=== PATIENT | male | born 1940 | race Caucasian/White ===

== ENCOUNTER 2021-07-07 21:49 | Inpatient (IN) | payer OTHER ==
[~2021-07-07] VITALS: Ht 175.3 cm; Wt 65.4 kg
[~2021-07-07 21:49] MED LIST: LISI-892 PO; METF-960 PO
[2021-07-07] MEDS ORDERED: IOHEXOL 350 MG/ML 100 ML VIAL ONE (22:07)
[2021-07-07] MEDS ORDERED: SODIUM CHLORIDE 0.9% 100 ML ONE (22:07)
[2021-07-07] MEDS ORDERED: ALTEPLASE PER STROKE PROTOCOL CLINICAL ONE (22:15)
[2021-07-07 22:17] LABS: BASOPHILS % (AUTO) 0.5 % (0.0-2.0); HEMATOCRIT 43.2 % (41-53); HEMOGLOBIN 13.9 g/dL (13.5-17.5); LYMPHOCYTES # (AUTO) 4.5 K/uL (1.0-4.8); LYMPHOCYTES % (AUTO) 35.8 % (22.0-44.0); MEAN CORPUSCULAR HGB CONC 32.1 G/dL (31.0-37.0); MEAN CORPUSCULAR VOLUME 97 fL (80-100); MONOCYTES # (AUTO) 1.8 K/uL (0.1-1.0); MONOCYTES % (AUTO) 14.6 % (2.0-9.0); NEUTROPHILS # (AUTO) 5.6 K/uL (1.8-7.7); NEUTROPHILS % (AUTO) 45.1 % (40.0-70.0); PLATELET COUNT (AUTO) 314 K/uL (150-450); RED BLOOD CELL COUNT(AUTO) 4.47 MIL/uL (4.50-5.90); RED CELL DISTRIBUTION WIDTH 14.2 % (11.5-14.5)
[2021-07-07 22:28] LABS: CALCIUM, TOTAL 9.1 mg/dL (8.8-10.5); CREATININE 1.44 mg/dL (0.60-1.30); POTASSIUM 4.8 mmol/L (3.5-5.1)
[2021-07-07] MEDS ORDERED: ALTEPLASE 56 MG in WATER FOR INJECTION,STERILE 56 ML IV ONE (22:30)
[2021-07-07] MEDS ORDERED: ALTEPLASE 6.2 MG in WATER FOR INJECTION,STERILE 6.2 ML IV ONE (22:30)
[2021-07-07 22:33] LABS: BILIRUBIN,TOTAL 0.5 mg/dL (0.1-1.0); TOTAL PROTEIN, SERUM 8.3 g/dL (6.4-8.2)
[2021-07-07] MEDS ORDERED: ONDANSETRON HCL 4 MG/2 ML VIAL IVP PRN ×2 (22:45→23:00)
[2021-07-07] MEDS ORDERED: SODIUM CHLORIDE 0.9% 1,000 ML IV ONE (23:15)
[2021-07-07] MEDS: LevETIRAcetam 750 MG in DEXTROSE 5%-WATER 100 ML IV SCH (23:20)
[2021-07-07 23:59] LABS: APPEARANCE,URINE CLEAR (CLEAR); BILIRUBIN,URINE NEGATIVE (NEGATIVE); GLUCOSE, URINE (UA) NEGATIVE (NEGATIVE); KETONES,URINE NEGATIVE (NEGATIVE); LEUKOCYTE ESTERASE ,URINE NEGATIVE (NEGATIVE); NITRATE,URINE NEGATIVE (NEGATIVE); OCCULT BLOOD,URINE NEGATIVE (NEGATIVE); PROTEIN,URINE TRACE (NEGATIVE); UROBILINOGEN,URINE 0.2 mg/dL (<=1.0)
[2021-07-08 00:04] LABS: AMPHET/METH SCREEN,URINE NEGATIVE (NEGATIVE); BARBITURATE SCREEN, URINE NEGATIVE (NEGATIVE); BENZODIAZEPINES SCREEN,URINE NEGATIVE (NEGATIVE); CANNABINOID SCREEN,URINE NEGATIVE (NEGATIVE); COCAINE SCREEN,URINE NEGATIVE (NEGATIVE); METHADONE SCREEN, URINE NEGATIVE (NEGATIVE); OPIATE SCREEN,URINE NEGATIVE (NEGATIVE); PHENCYCLIDINE SCREEN,URINE NEGATIVE (NEGATIVE)
[2021-07-08 00:17] LABS: LACTIC ACID 13.8 mmol/L (0.4-2.0)
[2021-07-08 00:18] LABS: COVID AG,FIA SOURCE NASOPHARYNGEAL
[2021-07-08] MEDS ORDERED: HydrALAZINE HCL 20 MG/ML VIAL IVP PRN (03:45)
[2021-07-08] MEDS ORDERED: HydrALAZINE HCL 20 MG/ML VIAL IVP ONE (03:45)
[2021-07-08 05:33] LABS: BASOPHILS % (AUTO) 0.6 % (0.0-2.0); EOSINOPHILS % (AUTO) 1.8 % (1.0-6.0); HEMATOCRIT 39.1 % (41-53); HEMOGLOBIN 12.9 g/dL (13.5-17.5); LYMPHOCYTES # (AUTO) 1.9 K/uL (1.0-4.8); LYMPHOCYTES % (AUTO) 15.3 % (22.0-44.0); MEAN CORPUSCULAR HEMOGLOBIN 30.8 pg (26.0-34.0); MEAN CORPUSCULAR VOLUME 93 fL (80-100); MONOCYTES # (AUTO) 1.7 K/uL (0.1-1.0); MONOCYTES % (AUTO) 13.6 % (2.0-9.0); NEUTROPHILS # (AUTO) 8.6 K/uL (1.8-7.7); NEUTROPHILS % (AUTO) 68.7 % (40.0-70.0); PLATELET COUNT (AUTO) 265 K/uL (150-450); RED CELL DISTRIBUTION WIDTH 13.6 % (11.5-14.5)
[2021-07-08 05:50] LABS: ALANINE AMINOTRANSFERASE 28 U/L (12-78); ALBUMIN 3.3 g/dL (3.4-5.0); ALKALINE PHOSPHATASE 93 U/L (46-116); ANION GAP 12 mmol/L (8-16); ASPARTATE AMINOTRANSFERASE 25 U/L (15-37); BILIRUBIN,TOTAL 0.4 mg/dL (0.1-1.0); CALCIUM, TOTAL 8.5 mg/dL (8.8-10.5); CARBON DIOXIDE 27 mmol/L (22-29); CHLORIDE 97 mmol/L (98-107); CREATININE 0.99 mg/dL (0.60-1.30); GLUCOSE,RANDOM 130 mg/dL (70-110); SODIUM SERUM 136 mmol/L (136-145); TOTAL PROTEIN, SERUM 6.8 g/dL (6.4-8.2); UREA NITROGEN, BLOOD 15 mg/dL (7-18)
[2021-07-08 05:52] LABS: GLOMERULAR FILTR. RATE CALC > 60 mL/min (>60)
[2021-07-08] MEDS: LevETIRAcetam 750 MG in DEXTROSE 5%-WATER 100 ML IV SCH ×2 (10:30→22:45)
[2021-07-08 21:00] VITALS: BP 140/57
[2021-07-08 22:00] VITALS: BP 114/55
[2021-07-08] MEDS ORDERED: SODIUM CHLORIDE 0.9% 250 ML IV ONE (22:46)
[2021-07-09] VITALS: BP 124/88
[2021-07-09 04:00] VITALS: BP 126/48
[2021-07-09 06:37] LABS: BASOPHILS % (AUTO) 0.6 % (0.0-2.0); EOSINOPHILS % (AUTO) 4.6 % (1.0-6.0); HEMATOCRIT 38.1 % (41-53); HEMOGLOBIN 12.8 g/dL (13.5-17.5); LYMPHOCYTES # (AUTO) 2.4 K/uL (1.0-4.8); LYMPHOCYTES % (AUTO) 27.9 % (22.0-44.0); MEAN CORPUSCULAR HEMOGLOBIN 31.6 pg (26.0-34.0); MEAN CORPUSCULAR HGB CONC 33.7 G/dL (31.0-37.0); MEAN CORPUSCULAR VOLUME 94 fL (80-100); MONOCYTES # (AUTO) 1.7 K/uL (0.1-1.0); MONOCYTES % (AUTO) 20.2 % (2.0-9.0); NEUTROPHILS % (AUTO) 46.7 % (40.0-70.0); PLATELET COUNT (AUTO) 237 K/uL (150-450); RED BLOOD CELL COUNT(AUTO) 4.06 MIL/uL (4.50-5.90); RED CELL DISTRIBUTION WIDTH 13.7 % (11.5-14.5)
[2021-07-09 07:08] LABS: ALANINE AMINOTRANSFERASE 25 U/L (12-78); ALKALINE PHOSPHATASE 81 U/L (46-116); ANION GAP 9 mmol/L (8-16); ASPARTATE AMINOTRANSFERASE 22 U/L (15-37); BILIRUBIN,TOTAL 0.6 mg/dL (0.1-1.0); CALCIUM, TOTAL 8.5 mg/dL (8.8-10.5); CARBON DIOXIDE 26 mmol/L (22-29); CHLORIDE 99 mmol/L (98-107); GLUCOSE,RANDOM 118 mg/dL (70-110); POTASSIUM 4.1 mmol/L (3.5-5.1); SODIUM SERUM 134 mmol/L (136-145); TOTAL PROTEIN, SERUM 6.5 g/dL (6.4-8.2); UREA NITROGEN, BLOOD 13 mg/dL (7-18)
[2021-07-09 07:11] LABS: GLOMERULAR FILTR. RATE CALC > 60 mL/min (>60)
[2021-07-09 08:00] VITALS: BP 140/50
[2021-07-09] MEDS: LevETIRAcetam 750 MG in DEXTROSE 5%-WATER 100 ML IV SCH ×2 (11:15→22:52)
[2021-07-09 12:00] VITALS: BP 138/69
[2021-07-09] MEDS ORDERED: ERGO500054 PO (13:33)
[2021-07-09] MEDS ORDERED: TERA2CAP PO (13:33)
[2021-07-09] MEDS ORDERED: HYDR25TA84 PO (13:33)
[2021-07-09] MEDS ORDERED: DIVA-111 PO (13:33)
[2021-07-09] MEDS: ASPIRIN 81 MG CHEWABLE TABLET PO SCH (13:36)
[2021-07-09 16:00] VITALS: BP 135/60
[2021-07-09 20:00] VITALS: BP 141/60
[2021-07-09] MEDS ORDERED: ATORVASTATIN CALCIUM 20 MG TABLET PO SCH (21:00)
[2021-07-10] VITALS: BP 158/61
[2021-07-10 04:00] VITALS: BP 158/63
[2021-07-10 06:23] LABS: CHOL/HDL RATIO 3.1 (4.2-7.3); THYROID STIMULATING HORMONE 2.49 uIU/mL (0.36-3.74)
[2021-07-10 08:00] VITALS: BP 122/59
[2021-07-10] MEDS: ASPIRIN 81 MG CHEWABLE TABLET PO SCH (09:00)
[2021-07-10] MEDS: LevETIRAcetam 750 MG in DEXTROSE 5%-WATER 100 ML IV SCH (11:01)
[2021-07-10 12:00] VITALS: BP 138/64
[2021-07-10] MEDS ORDERED: ATOR20TA65 PO (12:59)
[2021-07-10] MEDS ORDERED: ASPI81 PO (12:59)
== END 2021-07-10 13:53 | disposition home or self-care (01) | DRG 62 ==
LOC: EMS 21:51 → ICU 07-08 18:24
PROVIDERS: ADMIT Internal Medicine; ATTEND Internal Medicine
DX: I63.9 Cerebral infarction, unspecified (principal); N17.9 Acute kidney failure, unspecified; E11.9 Type 2 diabetes mellitus without complications; E78.5 Hyperlipidemia, unspecified; I10 Essential (primary) hypertension; G40.909 Epilepsy, unspecified, not intractable, without status epilepticus; F41.0 Panic disorder [episodic paroxysmal anxiety]; Z20.822 Contact with and (suspected) exposure to COVID-19; R47.01 Aphasia; Z79.899 Other long term (current) drug therapy
CPT/HCPCS: 70496; 70551; 71045; 80053; 80061; 80164; 81003; 83605; 83735; 84443; 84484; 85025; 85610; 87081; 92521; 93005; 93306; 93880; 95816; 97162; 97165; 97535; 99291; G0378; J0360; J0712; J2997; J7030; J7050; J7060; Q9967; 36415-L1; 36415-TC; 70450; 70450-TC

== ENCOUNTER 2021-10-22 17:45 | Inpatient (IN) | payer OTHER ==
[~2021-10-22] VITALS: Ht 172.7 cm; Wt 65.9 kg
[~2021-10-22 17:45] MED LIST changes: +ASPI81 PO; +ATOR20TA65 PO; +DIVA-111 PO; +ERGO500054 PO; +METF-1211 PO; -METF-960 PO; +TERA2CAP82 PO
[2021-10-22] MEDS ORDERED: SODIUM CHLORIDE 0.9% 100 ML ONE (17:57)
[2021-10-22] MEDS ORDERED: IOHEXOL 350 MG/ML 100 ML VIAL ONE (17:57)
[2021-10-22 18:51] LABS: BASOPHILS % (AUTO) 0.6 % (0.0-2.0); EOSINOPHILS % (AUTO) 3.1 % (1.0-6.0); HEMATOCRIT 35.6 % (41-53); HEMOGLOBIN 12.4 g/dL (13.5-17.5); LYMPHOCYTES # (AUTO) 1.2 K/uL (1.0-4.8); LYMPHOCYTES % (AUTO) 14.2 % (22.0-44.0); MEAN CORPUSCULAR HEMOGLOBIN 31.8 pg (26.0-34.0); MEAN CORPUSCULAR HGB CONC 34.7 G/dL (31.0-37.0); MEAN CORPUSCULAR VOLUME 92 fL (80-100); MONOCYTES # (AUTO) 1.2 K/uL (0.1-1.0); MONOCYTES % (AUTO) 14.4 % (2.0-9.0); NEUTROPHILS # (AUTO) 5.6 K/uL (1.8-7.7); NEUTROPHILS % (AUTO) 67.7 % (40.0-70.0); PLATELET COUNT (AUTO) 252 K/uL (150-450); RED BLOOD CELL COUNT(AUTO) 3.88 MIL/uL (4.50-5.90); RED CELL DISTRIBUTION WIDTH 13.5 % (11.5-14.5)
[2021-10-22 19:07] LABS: INR 1.1 (0.9-1.1); PROTHROMBIN TIME 11.4 SEC (9.4-11.6)
[2021-10-22 19:09] LABS: ALBUMIN 3.6 g/dL (3.4-5.0); BILIRUBIN,TOTAL 0.7 mg/dL (0.1-1.0); CALCIUM, TOTAL 8.5 mg/dL (8.8-10.5); CREATININE 1.48 mg/dL (0.60-1.30); POTASSIUM 5.2 mmol/L (3.5-5.1); TOTAL PROTEIN, SERUM 7.5 g/dL (6.4-8.2)
[2021-10-22] MEDS ORDERED: AZITHROMYCIN 500 MG/NS 250 ML IV ONE (19:15)
[2021-10-22] MEDS ORDERED: ASPIRIN 300 MG RECTAL SUPPOSITORY PR ONE (19:15)
[2021-10-22] MEDS ORDERED: CefTRIAXone 1 GM/DEXTROSE 50 ML IV ONE (19:15)
[2021-10-22] MEDS ORDERED: ONDANSETRON HCL 4 MG/2 ML VIAL IVP PRN ×2 (19:45→20:00)
[2021-10-22] MEDS ORDERED: 0.9% SODIUM CHLORIDE 10 ML SYRINGE IVP PRN (19:45)
[2021-10-22] MEDS ORDERED: ACETAMINOPHEN 325 MG TABLET PO PRN ×2 (19:45→20:00)
[2021-10-22] MEDS ORDERED: SODIUM CHLORIDE 0.9% 1,000 ML IV ONE (20:00)
[2021-10-22] MEDS ORDERED: DEXTROSE 50%-WATER 25 GM/50 ML SYRINGE IVP PRN (20:00)
[2021-10-22] MEDS: ATORVASTATIN CALCIUM 20 MG TABLET PO SCH (20:16)
[2021-10-22 20:17] LABS: COVID AG,FIA SOURCE NASAL SWAB
[2021-10-22 20:22] LABS: CREATININE,URINE RANDOM 35.3 mg/dL (30.0-125.0)
[2021-10-22 20:24] LABS: APPEARANCE,URINE CLEAR (CLEAR); BILIRUBIN,URINE NEGATIVE (NEGATIVE); GLUCOSE, URINE (UA) NEGATIVE (NEGATIVE); KETONES,URINE NEGATIVE (NEGATIVE); LEUKOCYTE ESTERASE ,URINE NEGATIVE (NEGATIVE); NITRATE,URINE NEGATIVE (NEGATIVE); OCCULT BLOOD,URINE NEGATIVE (NEGATIVE); PROTEIN,URINE POS 1+ (NEGATIVE); UROBILINOGEN,URINE 0.2 mg/dL (<=1.0)
[2021-10-22 20:27] LABS: AMPHET/METH SCREEN,URINE NEGATIVE (NEGATIVE); BARBITURATE SCREEN, URINE NEGATIVE (NEGATIVE); BENZODIAZEPINES SCREEN,URINE NEGATIVE (NEGATIVE); CANNABINOID SCREEN,URINE NEGATIVE (NEGATIVE); COCAINE SCREEN,URINE NEGATIVE (NEGATIVE); METHADONE SCREEN, URINE NEGATIVE (NEGATIVE); OPIATE SCREEN,URINE NEGATIVE (NEGATIVE)
[2021-10-22] MEDS: INSULIN GLARGINE,HUM.REC.ANLOG 100 UNITS/ML SQ SCH (20:29)
[2021-10-22 20:41] LABS: PHENCYCLIDINE SCREEN,URINE NEGATIVE (NEGATIVE)
[2021-10-22 20:43] LABS: RBC,URINE 0-2 /HPF (0-2)
[2021-10-22 20:44] LABS: BACTERIA,URINE Rare /HPF (None Seen); WBC,URINE 0-2 /HPF (0-5)
[2021-10-22] MEDS ORDERED: DIVALPROEX SODIUM 250 MG DR TABLET PO SCH (21:00)
[2021-10-22] MEDS: TERAZOSIN HCL 2 MG CAPSULE PO SCH (21:42)
[2021-10-22 23:42] LABS: GLUCOMETER DEV NAME(LOC) ERT.5; GLUCOSE,POINT OF CARE 100 MG/DL (70-110)
[2021-10-22] MEDS: HEPARIN SODIUM,PORCINE 5,000 UNITS/ML VIAL SQ SCH (23:47)
[2021-10-23] MEDS ORDERED: SODIUM CHLORIDE 0.9% 1,000 ML IV ONE (00:30)
[2021-10-23] MEDS ORDERED: HydrALAZINE HCL 20 MG/ML VIAL IVP PRN (01:15)
[2021-10-23] MEDS: LevETIRAcetam 500 MG in DEXTROSE 5%-WATER 100 ML IV SCH ×2 (01:36→13:20)
[2021-10-23 02:45] VITALS: BP 144/59
[2021-10-23 06:37] LABS: CALCIUM, TOTAL 8.4 mg/dL (8.8-10.5); CREATININE 1.32 mg/dL (0.60-1.30); POTASSIUM 5.3 mmol/L (3.5-5.1)
[2021-10-23] MEDS ORDERED: SODIUM POLYSTYRENE SULFONATE 15 GM/60 ML SUSPENSION BOTTLE PO ONE (07:30)
[2021-10-23 08:19] VITALS: BP 141/55
[2021-10-23] MEDS: ASPIRIN 81 MG CHEWABLE TABLET PO SCH (09:00)
[2021-10-23] MEDS: HEPARIN SODIUM,PORCINE 5,000 UNITS/ML VIAL SQ SCH ×2 (09:35→16:28)
[2021-10-23 11:35] VITALS: BP 119/68
[2021-10-23] MEDS: SODIUM CHLORIDE 0.9% 1,000 ML IV SCH (13:20)
[2021-10-23 15:52] VITALS: BP 117/50
[2021-10-23] MEDS: SODIUM ZIRCONIUM CYCLOSILICATE 5 GM POWDER PACKET PO SCH (16:28)
[2021-10-23 20:03] VITALS: BP 127/41
[2021-10-23 20:52] LABS: GLUCOMETER DEV NAME(LOC) 5N.3; GLUCOSE,POINT OF CARE 71 MG/DL (70-110)
[2021-10-23 20:52] LABS: GLUCOMETER DEV NAME(LOC) 5N.3; GLUCOSE,POINT OF CARE 197 MG/DL (70-110)
[2021-10-23 20:52] LABS: GLUCOMETER DEV NAME(LOC) 5N.3; GLUCOSE,POINT OF CARE 116 MG/DL (70-110)
[2021-10-23] MEDS: INSULIN GLARGINE,HUM.REC.ANLOG 100 UNITS/ML SQ SCH (21:54)
[2021-10-23] MEDS: INSULIN LISPRO 100 UNITS/ML SQ PRN (21:55)
[2021-10-23] MEDS: TERAZOSIN HCL 2 MG CAPSULE PO SCH (21:56)
[2021-10-23] MEDS: ATORVASTATIN CALCIUM 20 MG TABLET PO SCH (21:56)
[2021-10-24 00:58] VITALS: BP 111/55
[2021-10-24] MEDS: LevETIRAcetam 500 MG in DEXTROSE 5%-WATER 100 ML IV SCH (02:22)
[2021-10-24] MEDS: HEPARIN SODIUM,PORCINE 5,000 UNITS/ML VIAL SQ SCH ×3 (02:23→16:08)
[2021-10-24 04:55] VITALS: BP 137/65
[2021-10-24 05:46] LABS: GLUCOMETER DEV NAME(LOC) 5N.3; GLUCOSE,POINT OF CARE 144 MG/DL (70-110)
[2021-10-24 06:07] LABS: GLUCOMETER DEV NAME(LOC) 5N.1C; GLUCOSE,POINT OF CARE 125 MG/DL (70-110)
[2021-10-24 07:46] LABS: GLUCOMETER DEV NAME(LOC) 5N.3; GLUCOSE,POINT OF CARE 80 MG/DL (70-110)
[2021-10-24 07:58] VITALS: BP 146/67
[2021-10-24] MEDS: ASPIRIN 81 MG CHEWABLE TABLET PO SCH (08:30)
[2021-10-24] MEDS: SODIUM ZIRCONIUM CYCLOSILICATE 5 GM POWDER PACKET PO SCH (08:30)
[2021-10-24 10:37] LABS: ANION GAP 4 mmol/L (8-16); CALCIUM, TOTAL 8.8 mg/dL (8.8-10.5); CARBON DIOXIDE 28 mmol/L (22-29); CHLORIDE 100 mmol/L (98-107); FREE T4 (FREE THYROXINE) 1.01 ng/dL (0.76-1.46); GLUCOSE,RANDOM 94 mg/dL (70-110); POTASSIUM 4.8 mmol/L (3.5-5.1); SODIUM SERUM 132 mmol/L (136-145); THYROID STIMULATING HORMONE 1.87 uIU/mL (0.36-3.74); UREA NITROGEN, BLOOD 16 mg/dL (7-18)
[2021-10-24 10:38] LABS: GLOMERULAR FILTR. RATE CALC > 60 mL/min (>60)
[2021-10-24 11:22] VITALS: BP 116/59
[2021-10-24] MEDS ORDERED: IOHEXOL 350 MG/ML 75 ML VIAL ONE (11:48)
[2021-10-24] MEDS ORDERED: SODIUM CHLORIDE 0.9% 100 ML ONE (11:48)
[2021-10-24] MEDS: SODIUM CHLORIDE 0.9% 1,000 ML IV SCH (12:05)
[2021-10-24 15:23] VITALS: BP 146/57
[2021-10-24 17:31] LABS: GLUCOMETER DEV NAME(LOC) 5N.3; GLUCOSE,POINT OF CARE 90 MG/DL (70-110)
[2021-10-24 17:31] LABS: GLUCOMETER DEV NAME(LOC) 5N.3; GLUCOSE,POINT OF CARE 96 MG/DL (70-110)
[2021-10-24 20:09] VITALS: BP 168/69
[2021-10-24 20:26] LABS: GLUCOMETER DEV NAME(LOC) 5N.3; GLUCOSE,POINT OF CARE 84 MG/DL (70-110)
[2021-10-24] MEDS: ATORVASTATIN CALCIUM 20 MG TABLET PO SCH (21:04)
[2021-10-24] MEDS: TERAZOSIN HCL 2 MG CAPSULE PO SCH (21:04)
[2021-10-24] MEDS: INSULIN GLARGINE,HUM.REC.ANLOG 100 UNITS/ML SQ SCH (21:08)
[2021-10-25 00:46] VITALS: BP 121/57
[2021-10-25] MEDS: HEPARIN SODIUM,PORCINE 5,000 UNITS/ML VIAL SQ SCH ×2 (02:39→07:50)
[2021-10-25 04:27] VITALS: BP 158/59
[2021-10-25 06:11] LABS: GLUCOMETER DEV NAME(LOC) 5N.1C; GLUCOSE,POINT OF CARE 69 MG/DL (70-110)
[2021-10-25 07:36] VITALS: BP 144/59
[2021-10-25] MEDS: ASPIRIN 81 MG CHEWABLE TABLET PO SCH (07:49)
[2021-10-25] MEDS: SODIUM ZIRCONIUM CYCLOSILICATE 5 GM POWDER PACKET PO SCH (09:11)
[2021-10-25 10:44] VITALS: BP 146/64
[2021-10-25] MEDS: INSULIN LISPRO 100 UNITS/ML SQ PRN (12:14)
[2021-10-25 18:22] LABS: GLUCOMETER DEV NAME(LOC) 5N.1C; GLUCOSE,POINT OF CARE 174 MG/DL (70-110)
== END 2021-10-25 13:40 | disposition home or self-care (01) | DRG 682 ==
LOC: EDUNIT# 17:45 → EMS 17:47 → 5S 10-23 02:20
PROVIDERS: ADMIT Internal Medicine; ATTEND Internal Medicine
DX: N17.9 Acute kidney failure, unspecified (principal); G93.41 Metabolic encephalopathy; E87.1 Hypo-osmolality and hyponatremia; J44.9 Chronic obstructive pulmonary disease, unspecified; I10 Essential (primary) hypertension; F17.210 Nicotine dependence, cigarettes, uncomplicated; Z20.822 Contact with and (suspected) exposure to COVID-19; I25.10 Atherosclerotic heart disease of native coronary artery without angina pectoris; R91.1 Solitary pulmonary nodule; E78.5 Hyperlipidemia, unspecified; N40.0 Benign prostatic hyperplasia without lower urinary tract symptoms; E87.5 Hyperkalemia; E11.9 Type 2 diabetes mellitus without complications; G40.909 Epilepsy, unspecified, not intractable, without status epilepticus; Z86.73 Personal history of transient ischemic attack (TIA), and cerebral infarction without residual deficits
CPT/HCPCS: 70496; 70498; 71045; 71260; 80048; 80053; 80164; 81001; 82024; 82533; 82570; 82962; 83605; 83930; 83935; 84295; 84300; 84439; 84443; 84484; 85025; 85610; 85730; 86850; 86900; 86901; 87040; 92522; 92610; 93005; 97162; 99291; J0456; J0696; J0712; J1644; J1815; J7030; J7050; J7060; Q9967; 36415-L1; 36415-TC; 70450; 70450-TC

== ENCOUNTER 2022-08-07 12:57 | Emergency (ER) | payer OTHER ==
[~2022-08-07] VITALS: Ht 165.1 cm; Wt 65.9 kg
[~2022-08-07 12:57] MED LIST changes: +AMLO5TAB66 PO; -ATOR20TA65 PO; -DIVA-111 PO; +DIVA-80 PO; +LEVE500T20 PO; -LISI-892 PO; -METF-1211 PO; +ROSU20TA73 PO
[2022-08-07] MEDS ORDERED: LISI2.5T91 PO (13:08)
[2022-08-07] MEDS ORDERED: DIVA-112 PO (13:08)
[2022-08-07 13:17] VITALS: BP 142/70
== END 2022-08-07 16:56 | disposition left against medical advice (07) ==
LOC: EMS 12:57
DX: Z53.21 Procedure and treatment not carried out due to patient leaving prior to being seen by health care provider (principal)

== ENCOUNTER 2023-02-13 13:06 | Emergency (ER) | payer OTHER ==
[~2023-02-13] VITALS: Ht 170.2 cm; Wt 60.8 kg
[~2023-02-13 13:06] MED LIST changes: +DIVA-112 PO; -DIVA-80 PO; +DIVA500T53 PO; -LEVE500T20 PO; +LISI2.5T91 PO; -ROSU20TA73 PO; -TERA2CAP82 PO
[2023-02-13] MEDS ORDERED: IOHEXOL 350 MG/ML 100 ML VIAL ONE (13:29)
[2023-02-13] MEDS ORDERED: SODIUM CHLORIDE 0.9% 100 ML ONE (13:29)
[2023-02-13 13:30] LABS: BASOPHILS % (AUTO) 0.8 % (0.0-2.0); EOSINOPHILS % (AUTO) 2.5 % (1.0-6.0); HEMATOCRIT 38.6 % (41-53); HEMOGLOBIN 13.1 g/dL (13.5-17.5); LYMPHOCYTES # (AUTO) 2.4 K/uL (1.0-4.8); LYMPHOCYTES % (AUTO) 24.7 % (22.0-44.0); MEAN CORPUSCULAR HEMOGLOBIN 33.3 pg (26.0-34.0); MEAN CORPUSCULAR HGB CONC 34.1 G/dL (31.0-37.0); MEAN CORPUSCULAR VOLUME 98 fL (80-100); MONOCYTES # (AUTO) 1.3 K/uL (0.1-1.0); MONOCYTES % (AUTO) 13.5 % (2.0-9.0); NEUTROPHILS # (AUTO) 5.8 K/uL (1.8-7.7); NEUTROPHILS % (AUTO) 58.5 % (40.0-70.0); PLATELET COUNT (AUTO) 244 K/uL (150-450); RED BLOOD CELL COUNT(AUTO) 3.95 MIL/uL (4.50-5.90); RED CELL DISTRIBUTION WIDTH 13.3 % (11.5-14.5)
[2023-02-13 13:37] LABS: ANION GAP 5 mmol/L (8-16); CALCIUM, TOTAL 9.1 mg/dL (8.8-10.5); CARBON DIOXIDE 29 mmol/L (22-29); CHLORIDE 97 mmol/L (98-107); CREATININE 0.98 mg/dL (0.60-1.30); GLOMERULAR FILTR. RATE CALC > 60 mL/min (>60); GLUCOSE,RANDOM 103 mg/dL (70-110); POTASSIUM 4.5 mmol/L (3.5-5.1); SODIUM SERUM 131 mmol/L (136-145)
[2023-02-13 13:44] LABS: ALANINE AMINOTRANSFERASE 23 U/L (12-78); ALBUMIN 3.5 g/dL (3.4-5.0); ALKALINE PHOSPHATASE 98 U/L (46-116); ASPARTATE AMINOTRANSFERASE 28 U/L (15-37); BILIRUBIN,TOTAL 0.5 mg/dL (0.1-1.0); TOTAL PROTEIN, SERUM 7.7 g/dL (6.4-8.2)
[2023-02-13 13:47] LABS: PROTHROMBIN TIME 10.9 SEC (9.4-11.6)
[2023-02-13] MEDS ORDERED: AMLO10TA55 PO (14:13)
[2023-02-13] MEDS ORDERED: LevETIRAcetam 1,000 MG in DEXTROSE 5%-WATER 100 ML IV ONE (14:15)
[2023-02-13 15:52] LABS: COVID AG,FIA SOURCE NASAL SWAB
[2023-02-13] MEDS ORDERED: ASPIRIN 325 MG TABLET PO ONE (16:00)
[2023-02-13] MEDS ORDERED: ASPIRIN 300 MG RECTAL SUPPOSITORY PR ONE (16:30)
[2023-02-13 17:06] LABS: APPEARANCE,URINE CLEAR (CLEAR); BILIRUBIN,URINE NEGATIVE (NEGATIVE); GLUCOSE, URINE (UA) NEGATIVE (NEGATIVE); KETONES,URINE NEGATIVE (NEGATIVE); LEUKOCYTE ESTERASE ,URINE NEGATIVE (NEGATIVE); NITRATE,URINE NEGATIVE (NEGATIVE); OCCULT BLOOD,URINE NEGATIVE (NEGATIVE); PH,URINE 7.5 (5.0-8.0); PROTEIN,URINE TRACE mg/dL (NEGATIVE); SPECIFIC GRAVITIY, URINE 1.022 (1.003-1.030); UROBILINOGEN,URINE <=1.0 mg/dL (<=1.0)
[2023-02-13 17:14] LABS: AMPHET/METH SCREEN,URINE NEGATIVE (NEGATIVE); BARBITURATE SCREEN, URINE NEGATIVE (NEGATIVE); BENZODIAZEPINES SCREEN,URINE NEGATIVE (NEGATIVE); CANNABINOID SCREEN,URINE NEGATIVE (NEGATIVE); COCAINE SCREEN,URINE NEGATIVE (NEGATIVE); METHADONE SCREEN, URINE NEGATIVE (NEGATIVE); OPIATE SCREEN,URINE NEGATIVE (NEGATIVE); PHENCYCLIDINE SCREEN,URINE NEGATIVE (NEGATIVE)
[2023-02-13 17:29] LABS: BACTERIA,URINE None Seen /HPF (None Seen); RBC,URINE None Seen /HPF (0-2); WBC,URINE None Seen /HPF (0-5)
[2023-02-13 21:11] VITALS: BP 125/52
== END 2023-02-13 21:12 | disposition short-term general hospital (02) ==
LOC: EMS 13:32
DX: R56.9 Unspecified convulsions (principal); I10 Essential (primary) hypertension; G45.9 Transient cerebral ischemic attack, unspecified; Z20.822 Contact with and (suspected) exposure to COVID-19
CPT/HCPCS: 99285; 70496; 96365; 71045; 87426; 80053; 81001; 84484; 85025; 85610; 85730; 86850; 86900; 86901; 36415; 70498; 82948; 93005; 70450; 80307 ×2; J0712; Q9967; J7060; J7050

== ENCOUNTER 2024-03-31 23:38 | Emergency (ER) | payer OTHER ==
[~2024-03-31 23:38] MED LIST changes: +AMLO10TA55 PO; -AMLO5TAB66 PO; -DIVA-112 PO; -DIVA500T53 PO; -ERGO500054 PO
== END 2024-03-31 23:49 | disposition left against medical advice (07) ==
LOC: EMS 23:39
DX: Z53.21 Procedure and treatment not carried out due to patient leaving prior to being seen by health care provider (principal)